=== PATIENT | female | born 1955 | race Caucasian/White ===

== ENCOUNTER 2016-11-25 16:46 | Emergency (ER) | payer SELFPAY ==
[~2016-11-25] VITALS: Ht 170.2 cm; Wt 90.0 kg
[2016-11-25 17:44] VITALS: BP 150/67; PULSE 75; RESP 16; TEMP 98; O2SAT 93
== END 2016-11-25 21:47 | disposition left against medical advice (07) ==
LOC: PHED 16:46
DX: Z53.9 Procedure and treatment not carried out, unspecified reason (principal)
CPT/HCPCS: 99281